=== PATIENT | male | born 1985 | race Caucasian/White ===

== ENCOUNTER 2024-09-29 07:23 | Emergency (ER) | payer OTHER ==
[~2024-09-29] VITALS: Ht 193 cm; Wt 81.6 kg
[2024-09-29] MEDS ORDERED: HYDR-3980 PO (08:00)
[2024-09-29] MEDS ORDERED: CLIN300C12 PO (08:00)
[2024-09-29] MEDS ORDERED: CLINDAMYCIN HCL 300 MG CAPSULE ONE (08:01)
[2024-09-29] MEDS ORDERED: KETOROLAC TROMETHAMINE 30 MG INJ ONE (08:01)
[2024-09-29] MEDS: CLINDAMYCIN HCL 150 MG CAPSULE PO ONE (08:08)
[2024-09-29] MEDS: KETOROLAC TROMETHAMINE 30 MG INJ IM ONE (08:08)
[2024-09-29 08:16] VITALS: BP 145/91; O2SAT 100
== END 2024-09-29 08:16 | disposition home or self-care (01) ==
LOC: ER 07:23
DX: M27.2 Inflammatory conditions of jaws (principal); I10 Essential (primary) hypertension
CPT/HCPCS: 99283; 96372; J1885; A4606; A4663